=== PATIENT | male | born 1945 | race Caucasian/White ===

== ENCOUNTER 2016-09-16 07:45 | Outpatient (CLI) | payer MEDICARE ==
[2016-09-16] VITALS (20 sets, daily range): BP systolic 110–151; BP diastolic 53–74
[~2016-09-16] VITALS: Ht 182.9 cm; Wt 107.5 kg
[~2016-09-16 07:45] MED LIST: AMLODIPINE10 MG PO; APAP/HYDROCODON1 TA9 PO; ASPIRIN 81MG TA81 MG PO; CLARITHROMYCIN500 M1 PO; CLEOCIN HCL300 MG PO; DAPSONE100 M1 PO; FERROUS SULFAT325 M2 PO; FOLIC ACID 1MG T1 MG PO; HYDROCODONE 7.51 TAB PO; LANSOPRAZOLE30 MG PO; LISINOPRIL 20MG20 MG PO; MAG-OX 400MG T400 MG PO; MULTIVITAMIN OR; NORCO 325 MG-101 TAB PO; OMEPRAZOLE20 MG PO; PROTONIX 40MG T40 MG PO; QUALAQUIN324 MG PO; RANITIDINE HCL150 MG PO; REQUIP2 M1 PO; ROPINIROLE 0.0.25 MG PO; SEPTRA DS 800 M1 TAB PO; TRAMADOL 50MG T50 M1; TRAMADOL 50MG T50 MG PO; VENOFER20 MG/ML IV; VITAMIN C500 M1 PO; VITAMIN D1000 IU PO; VOLTAREN GEL1% TP
[2016-09-16] MEDS ORDERED: HYDROCHLOROTH12.5 M1 PO (08:16)
[2016-12-15] MEDS ORDERED: MIRAPEX 0.120.125 MG PO (08:42)
== END 2016-09-16 14:35 | disposition home or self-care (01) ==
LOC: COP 07:45
PROVIDERS: Internal Medicine Adolescent Medicine
DX: D50.0 Iron deficiency anemia secondary to blood loss (chronic) (principal)
CPT/HCPCS: P9016

== ENCOUNTER 2017-01-05 08:00 | Outpatient (CLI) | payer MEDICARE ==
[~2017-01-05] VITALS: Ht 182.9 cm; Wt 106.1 kg
[~2017-01-05 08:00] MED LIST changes: +HYDROCHLOROTH12.5 M1 PO; +MIRAPEX 0.120.125 MG PO
[2017-01-05 08:38] LABS: LYMPH # 0.8 K/mm3 (0.7-4.5); LYMPH % 20.5 % (10-50)
[2017-01-05 08:41] LABS: HEMOGLOBIN 7.9 g/dL (14.1-18.0)
[2017-01-05 09:50] VITALS: BP 141/55
[2017-01-05 10:25] VITALS: BP 141/60
== END 2017-01-05 10:40 | disposition home or self-care (01) ==
LOC: COP 08:00
PROVIDERS: Internal Medicine Adolescent Medicine
DX: D50.9 Iron deficiency anemia, unspecified (principal); D50.0 Iron deficiency anemia secondary to blood loss (chronic)
CPT/HCPCS: J1756

== ENCOUNTER 2017-01-12 08:00 | Outpatient (CLI) | payer MEDICARE ==
[2017-01-12] VITALS (18 sets, daily range): BP systolic 128–157; BP diastolic 46–61
[~2017-01-12] VITALS: Ht 182.9 cm; Wt 106.1 kg
[2017-01-12 08:26] LABS: HEMOGLOBIN 6.9 g/dL (14.1-18.0)
[2017-01-12 09:55] LABS: ABO BLOOD TYPE A; ANTIHUMAN GLOB CROSSMATCH COMPAT; RH BLOOD TYPE POSITIVE
[2017-01-12 15:42] LABS: HEMOGLOBIN 8.2 g/dL (14.1-18.0)
== END 2017-01-12 15:15 | disposition home or self-care (01) ==
LOC: COP 08:00
PROVIDERS: Internal Medicine Medical Oncology
DX: D50.9 Iron deficiency anemia, unspecified (principal); D50.0 Iron deficiency anemia secondary to blood loss (chronic)
CPT/HCPCS: P9016

== ENCOUNTER 2017-06-27 09:04 | Day surgery (SDC) | payer MEDICARE ==
[2017-06-27 11:57] VITALS: BP 153/69
== END 2017-06-27 11:52 | disposition home or self-care (01) ==
LOC: SDC 09:04
PROVIDERS: Ophthalmology
PROC: 08RK3JZ Replacement of Left Lens with Synthetic Substitute, Percutaneous Approach (ICD-10-PCS; principal; 2017-06-27 11:30)
DX: H25.9 Unspecified age-related cataract (principal); H53.8 Other visual disturbances; H53.149 Visual discomfort, unspecified
CPT/HCPCS: V2632

== ENCOUNTER → 2017-07-10 | Outpatient (CLI) | payer MEDICARE ==
[~2017-07-10] MED LIST changes: +AMLO5TAB PO; +CYCLOBENZAPRINE5 MG PO
[2017-07-10 17:56] LABS: HEMOGLOBIN 8.3 g/dL (14.1-18.0)
[2017-07-10 20:59] LABS: ABO BLOOD TYPE A; ANTIHUMAN GLOB CROSSMATCH COMPAT; RH BLOOD TYPE POSITIVE
[2017-07-10 21:00] LABS: ANTIHUMAN GLOB CROSSMATCH COMPAT
== END ==
LOC: LAB 17:22
PROVIDERS: Nurse Practitioner Family
DX: D50.0 Iron deficiency anemia secondary to blood loss (chronic) (principal)

== ENCOUNTER 2017-07-11 08:05 | Outpatient (CLI) | payer MEDICARE ==
[~2017-07-11] VITALS: Ht 182.9 cm; Wt 104.3 kg
[2017-07-11] VITALS (18 sets, daily range): BP systolic 128–154; BP diastolic 58–68
[~2017-07-11 08:05] MED LIST changes: -AMLO5TAB PO; -CYCLOBENZAPRINE5 MG PO
[2017-07-11] MEDS ORDERED: AMLO5TAB PO (08:48)
[2017-07-11] MEDS ORDERED: CYCLOBENZAPRINE5 MG PO (08:49)
[2017-07-11] MEDS ORDERED: ASPIRIN 81MG TA81 MG PO (08:49)
[2017-07-11 13:45] LABS: HEMOGLOBIN 10.1 g/dL (14.1-18.0)
== END 2017-07-11 13:30 | disposition home or self-care (01) ==
LOC: COP 08:05
PROVIDERS: Internal Medicine Adolescent Medicine
DX: D50.0 Iron deficiency anemia secondary to blood loss (chronic) (principal)
CPT/HCPCS: P9016